=== PATIENT | male | born 1955 | race Caucasian/White ===

== ENCOUNTER 2017-06-22 11:20 | Emergency (ER) | payer OTHER, SELFPAY ==
[2017-06-22 11:54] LABS: Clarity Clear (Clear)
[2017-06-22 11:55] LABS: Bacteria/HPF None Seen HPF (None Seen); Bilirubin Negative (Negative); Blood, Urine Negative (Negative); Glucose, Urine (Dipstick) Negative (Negative); Leukocyte Negative (Negative); Nitrite Negative (Negative); Protein, Urine (Dipstick) 30 mg/dL (Neg-Trace); RBC/HPF 0-3 HPF (0-3); Squamous Epithelial 0-3 HPF (0-3); WBC/HPF 0-3 HPF (0-3); Yeast-All Forms Rare HPF (None Seen); pH, Urine 5.5 (5.0-9.0)
--- NOTE | 2017-06-22 15:22 | CT ---
CT ABDOMEN AND PELVIS WITHOUT CONTRAST: Date: 06/22/[address] of the abdomen and pelvis was done without oral or IV contrast. Axial slices were acquired , then coronal reconstructions were done. FINDINGS: Mild left hydronephrosis and hydroureter is present secondary to a small, 4.0 mm, distal left ureter al calculus near the UVJ. Stranding is present around the left kidney as expected. A few tiny nonobs tructing calculi are seen in the right kidney. A 2.8 cm lucency in the upper pole of the left kidney is probably a cyst. There are several cystic changes scattered throughout the liver, the largest of which measures about 2.7 cm in size. The lung bases are clear. The spleen, pancreas, adrenal glands, and aorta showed no acute changes. The bowel is nondistended with no sign of obstruction. Diverticulosis is present, particularly in th e sigmoid colon. There are no findings of diverticulitis. CT of the pelvis was remarkable only for the diverticulosis and the distal left ureteral calculus. N o free fluid, adenopathy, or pelvic mass seen. Degenerative changes are present in the lumbar spine, especially at the L4-L5 and L5-S1 levels. IMPRESSION: 1. 4.0 mm stone in the distal left ureter at the UVJ causing mild left hydronephrosis. 2. Nonobstructing tiny calculi in the right kidney. 3. Presumed left renal cyst. Probable hepatic cyst. 4. Diverticulosis. POS: HOME
== END 2017-06-22 12:15 | disposition home or self-care (01) ==
LOC: BURERS 11:20
DX: N20.1 Calculus of ureter (principal); M51.36 Other intervertebral disc degeneration, lumbar region; N23 Unspecified renal colic; F17.210 Nicotine dependence, cigarettes, uncomplicated; Z79.82 Long term (current) use of aspirin
CPT/HCPCS: 74176; 81003; 81015